=== PATIENT | female | born 1980 | race Caucasian/White ===

== ENCOUNTER 2018-04-18 16:09 | Emergency (ER) | payer MEDICAID ==
[~2018-04-18] VITALS: Ht 154.9 cm; Wt 87.5 kg
[2018-04-18 16:12] VITALS: Ht 154.9 cm; Wt 87.5 kg
[2018-04-18 16:45] VITALS: BP 108/60
== END 2018-04-18 16:45 | disposition home or self-care (01) ==
LOC: ED 16:09
DX: H66.92 Otitis media, unspecified, left ear (principal)
CPT/HCPCS: 82962

== ENCOUNTER 2018-05-03 22:40 | Emergency (ER) | payer MEDICAID ==
[~2018-05-03] VITALS: Ht 157.5 cm; Wt 88.0 kg
[2018-05-03 22:49] VITALS: Ht 157.5 cm; Wt 88.0 kg
[2018-05-04 00:24] VITALS: BP 114/68
== END 2018-05-04 00:24 | disposition home or self-care (01) ==
LOC: ED 22:40
DX: S50.02XA Contusion of left elbow, initial encounter (principal); W22.8XXA Striking against or struck by other objects, initial encounter; Y93.89 Activity, other specified; Y92.89 Other specified places as the place of occurrence of the external cause; Y99.8 Other external cause status
CPT/HCPCS: J1885